=== PATIENT | female | born 1985 | race Caucasian/White ===

== ENCOUNTER 2016-04-19 07:02 | Day surgery (SDC) | payer OTHER ==
[2016-04-19] VITALS (12 sets, daily range): BP systolic 110–123; BP diastolic 66–78; PULSE 74–86; RESP 13–22; O2SAT 97–100
[~2016-04-19] VITALS: Ht 160 cm; Wt 54.4 kg
[~2016-04-19 07:02] MED LIST: CeFAZolin 2 Gm/50 mL D5W IV Premix IV ONE; Lactated Ringer's 1,000 ML IV SCH
[2016-04-19] MEDS ORDERED: Propofol 10,000 mCg/mL 20 mL Inj ONE (07:03)
[2016-04-19] MEDS ORDERED: Lidocaine PF 1% 30 mL Inj ONE (07:03)
[2016-04-19] MEDS ORDERED: fentaNYL-PF 50 mCg/mL 2 mL Inj ONE (07:03)
[2016-04-19] MEDS ORDERED: Dexamethasone 4 mg/mL Inj ONE (07:03)
[2016-04-19] MEDS ORDERED: Ondansetron 2 mg/mL 2 mL Inj ONE (07:03)
[2016-04-19] MEDS ORDERED: Phenylephrine 10,000 mCg/mL Inj ONE (07:03)
[2016-04-19] MEDS ORDERED: Phenylephrine/NS-PF 100 mCg/mL 5 mL Syringe IVPUSH ONE (07:03)
[2016-04-19] MEDS ORDERED: Lactated Ringer's 1,000 ML IV ONE ×3 (07:30→11:04)
[2016-04-19] MEDS ORDERED: Lactated Ringer's 500 ML IV PRN (07:49)
[2016-04-19] MEDS ORDERED: Lactated Ringer's 1,000 ML IV SCH (07:49)
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
[2016-04-19] MEDS ORDERED: Dexamethasone 4 mg/mL Inj IVPUSH PRN (07:50)
[2016-04-19] MEDS ORDERED: EPHEDrine Sulfate 50 mg/mL Inj IVPUSH PRN (07:50)
[2016-04-19] MEDS ORDERED: Ondansetron 2 mg/mL 2 mL Inj IVPUSH PRN (07:50)
[2016-04-19] MEDS ORDERED: Phenylephrine 10,000 mCg/mL Inj IVPUSH PRN (07:50)
[2016-04-19] MEDS ORDERED: MetoCLOpramide 5 mg/mL 2 mL Inj IVPUSH PRN (07:50)
[2016-04-19] MEDS ORDERED: Atropine 0.4 mg/mL Inj IVPUSH PRN (07:50)
[2016-04-19] MEDS ORDERED: fentaNYL-PF 50 mCg/mL 2 mL Inj IVPUSH PRN (07:50)
[2016-04-19] MEDS ORDERED: hydrALAZINE 20 mg/mL Inj IVPUSH PRN (07:50)
[2016-04-19] MEDS ORDERED: Labetalol 5 mg/mL 4 mL Inj IV PRN (07:50)
[2016-04-19] MEDS ORDERED: HYDROmorphone 1 mg/mL Inj IVPUSH PRN (07:50)
[2016-04-19] MEDS ORDERED: Bupivacaine-MPF 0.25%/EPI 30 mL Inj INJ ONE (08:18)
[2016-04-19] MEDS ORDERED: HYDROcodone-APAP 5-325 mg Tablet PO PRN (10:45)
--- NOTE | 2016-04-19 10:47 | PCM.ANEP1 ---
Post Anesthesia Phase 1 PACU Phase 1 Assessment Date of Service: Apr 19, 2016 Vital Signs Vital Signs Date Time Temp Pulse Resp B/P Pulse Ox O2 Delivery O2 Flow Rate FiO2 04/19/16 10:40 83 22 117/75 100 Room Air 04/19/16 10:35 79 19 113/73 100 Room Air 04/19/16 10:30 86 16 116/66 100 Simple Mask 8 04/19/16 10:28 36.9 85 19 123/78 100 Simple Mask 8 04/19/16 07:45 36.3 74 14 118/75 100 Room Air Anesthetic Administered: MAC Level of Alertness: Sleepy, easy to arouse DUDLEY's with Equal Strength: Yes Pain: No Nausea or Vomiting: No Oxygen Delivery: Simple Mask Lungs: Normal Air Movement Nabil Ball MD Apr 19, 2016 10:47
--- NOTE | 2016-04-19 11:02 | PCM.ANEP2 ---
Post Anesthesia Evaluation ASA/CMS Post Anesthesia Date of Service: Apr 19, 2016 VS in Patient's Normal Range?: Yes Resp Stable; Airway Patent?: Yes CV Function & Hydration Stable: Yes Mental Status Recovered?: Yes Pain control Satisfactory?: Yes N/V Control Satisfactory?: Yes Nabil Ball MD Apr 19, 2016 11:02
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
== END 2016-04-19 23:59 | disposition home or self-care (01) ==
LOC: SAS 07:02
PROVIDERS: ATTEND Plastic Surgery
DX: L90.5 Scar conditions and fibrosis of skin (principal); T22.0 Burn of unspecified degree of shoulder and upper limb, except wrist and hand
CPT/HCPCS: 14000; 14020; 88305; J0690; J1100; J2250; J2370; J2405; J3010; J7120

== ENCOUNTER → 2016-12-06 | Day surgery (SDC) | payer OTHER ==
[2016-12-06] VITALS (9 sets, daily range): BP systolic 98–117; BP diastolic 52–73; PULSE 65–86; RESP 15–18; O2SAT 98–100
[~2016-12-06] VITALS: Ht 160 cm; Wt 52.6 kg
[~2016-12-06] MED LIST changes: +Bupivacaine-MPF 0.25% 30 mL Inj INFILTRATE ONE; +CeFAZolin 2 Gm/50 mL D5W Duplex Bag IV ONE; -CeFAZolin 2 Gm/50 mL D5W IV Premix IV ONE; +CeFAZolin 2 Gm/50 mL D5W IV Premix IV SCH; +Dexamethasone 4 mg/mL Inj IVPUSH PRN; +Dexamethasone 4 mg/mL Inj ONE; +EPHEDrine Sulfate 50 mg/mL Inj IVPUSH PRN; +HYDROcodone-APAP 5-325 mg Tablet PO PRN; +HYDROmorphone 0.5 mg/0.5 mL iSecure Syringe ONE; +HYDROmorphone 1 mg/mL Inj IVPUSH PRN; +Lactated Ringer's 1,000 ML IV ONE; +Lactated Ringer's 500 ML IV PRN; +MetoCLOpramide 5 mg/mL 2 mL Inj IVPUSH PRN; +Ondansetron 2 mg/mL 2 mL Inj IVPUSH PRN; +Ondansetron 2 mg/mL 2 mL Inj ONE; +Phenylephrine 10,000 mCg/mL Inj IVPUSH PRN; +Propofol 10,000 mCg/mL 20 mL Inj ONE; +fentaNYL-PF 50 mCg/mL 2 mL Inj IVPUSH PRN; +fentaNYL-PF 50 mCg/mL 2 mL Inj ONE
[2016-12-06] MEDS: Lactated Ringer's 1,000 ML IV SCH ×2 (07:13→07:30)
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
--- NOTE | 2016-12-06 13:31 | PCM.ANEP1 ---
Post Anesthesia PACU Phase 1 Assessment Vital Signs Vital Signs Date Time Temp Pulse Resp B/P Pulse Ox O2 Delivery O2 Flow Rate FiO2 12/06/16 09:52 66 16 106/64 99 Room Air 12/06/16 09:44 65 18 98/63 98 Room Air 12/06/16 09:40 36.7 65 15 98/59 98 Room Air 12/06/16 09:30 36.6 74 18 101/59 99 Room Air 12/06/16 09:15 79 17 111/61 100 Room Air 12/06/16 09:10 86 17 101/56 Room Air 12/06/16 09:05 101/55 12/06/16 09:02 36.3 101/52 12/06/16 07:10 37 70 16 117/73 100 Room Air Anesthetic Administered: GA Level of Alertness: Awake, talking DUDLEY's with Equal Strength: Yes Pain: No Nausea or Vomiting: Yes CV Function & Hydration Stable: Yes Airway Device: Oxygen Delivery: Room Air Lungs: Clear to Auscultation Dermatome Level: Full Sensation PACU Phase 2 Assessment Complications: No Follow up Care: No Patient Instructions Provided: N/A Juan C Little MD Dec 06, 2016 13:31
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
== END | disposition home or self-care (01) ==
LOC: SAS 05:50
PROVIDERS: ATTEND Plastic Surgery
DX: L91.0 Hypertrophic scar (principal)
CPT/HCPCS: 13101; 13121; 13122; 88304; J0690; J1100; J1170; J1885; J2175; J2250; J2405; J2704; J3010; J7120